=== PATIENT | female | born 1960 | race Caucasian/White ===

== ENCOUNTER 2018-06-19 09:55 | Outpatient (RCR) | payer OTHER ==
[~2018-06-19 09:55] MED LIST: CITA20TA12 PO; IBUP-15; NAPR-243 PO; SOLI5TAB4 PO; TRM50T PO; ZOLP10TA; ZOLP10TA5 PO
== END 2018-07-03 | disposition home or self-care (01) ==
LOC: CR3 09:55
PROVIDERS: ATTEND Physician Assistant
DX: Z29.8 Encounter for other specified prophylactic measures (principal)